=== PATIENT | female | born 1985 | race Caucasian/White ===

== ENCOUNTER → 2016-07-27 | Outpatient (CLI) | payer BC ==
[~2016-07-27] VITALS: Ht 162.6 cm; Wt 54.4 kg
[2016-07-27 10:08] LABS: HEMOGLOBIN 13.5 gm/dl (12.3-15.3); RED BLOOD COUNT 4.34 M/UL (4.00-5.10); WHITE BLOOD COUNT 6.5 K/UL (4.5-11.0)
[2016-07-27 10:34] LABS: BUN/CREATININE RATIO 15 (0-10)
== END ==
LOC: OPSV 08:53
PROVIDERS: Internal Medicine Gastroenterology
DX: K51.90 Ulcerative colitis, unspecified, without complications (principal); Z88.1 Allergy status to other antibiotic agents
CPT/HCPCS: 36415; 80053; 85025; 86140; 96375; 96413; 96415; J1720; J1745; Q0163

== ENCOUNTER → 2016-09-21 | Outpatient (CLI) | payer BC ==
[~2016-09-21] VITALS: Ht 162.6 cm; Wt 54.4 kg
[2016-09-21 09:52] LABS: RED BLOOD COUNT 4.78 M/UL (4.00-5.10); WHITE BLOOD COUNT 7.8 K/UL (4.5-11.0)
[2016-09-21 09:57] LABS: BUN/CREATININE RATIO 15 (0-10)
== END ==
LOC: OPSV 09:00
PROVIDERS: Internal Medicine Gastroenterology
DX: K51.90 Ulcerative colitis, unspecified, without complications (principal)
CPT/HCPCS: 36415; 80053; 85025; 86140; 96375; 96413; 96415; J1720; J1745; Q0163

== ENCOUNTER → 2016-11-16 | Outpatient (CLI) | payer BC ==
[~2016-11-16] VITALS: Ht 162.6 cm; Wt 54.4 kg
[2016-11-16 10:51] LABS: HEMOGLOBIN 14.1 gm/dl (12.3-15.3); RED BLOOD COUNT 4.41 M/UL (4.00-5.10)
[2016-11-16 11:10] LABS: BUN/CREATININE RATIO 14 (0-10)
== END ==
LOC: OPSV 09:59
PROVIDERS: Internal Medicine Gastroenterology
DX: K51.90 Ulcerative colitis, unspecified, without complications (principal)
CPT/HCPCS: 36415; 80053; 83520; 85025; 86140; 96375; 96413; 96415; J1720; J1745; Q0163

== ENCOUNTER → 2020-06-03 | Outpatient (CLI) | payer BC ==
[~2020-06-03] MED LIST: AZULFIDINE500 MG PO; MACROBID 100 M100 MG PO; PHENERGAN 25 MG25 M1 PO
== END ==
LOC: CT 11:24
DX: R10.32 Left lower quadrant pain (principal); R10.13 Epigastric pain; R10.12 Left upper quadrant pain
CPT/HCPCS: Q9967

== ENCOUNTER → 2020-12-05 | Outpatient (CLI) | payer BC ==
[2020-12-05 13:38] LABS: HEMOGLOBIN 14.2 gm/dl (12.3-15.3); RED BLOOD COUNT 4.38 M/UL (4.00-5.10); WHITE BLOOD COUNT 9.3 K/UL (4.5-11.0)
[2020-12-05 14:18] LABS: BUN/CREATININE RATIO 16 (0-10)
== END ==
LOC: LAB 12:17
PROVIDERS: Physician Assistant
DX: R10.9 Unspecified abdominal pain (principal)
CPT/HCPCS: 36415; 80048; 80076; 82150; 83690; 85025